=== PATIENT | female | born 1960 | race Caucasian/White ===

== ENCOUNTER → 2024-08-11 08:05 | Outpatient (REF) | payer MEDICARE, SELFPAY | LOC: WDC 08:05 | PROVIDERS: ATTENDING PHYSICIAN Nurse Practitioner Adult Health; FAMILY PHYSICIAN Physician Assistant Medical | DX: Z12.31 Encounter for screening mammogram for malignant neoplasm of breast (principal) | CPT/HCPCS: 77063; 77067 ==

== ENCOUNTER → 2024-10-01 10:31 | Outpatient (REF) | payer MEDICARE, SELFPAY | LOC: RAD 10:31 | PROVIDERS: ATTENDING PHYSICIAN Physician Assistant Medical | DX: Z78.0 Asymptomatic menopausal state (principal) | CPT/HCPCS: 77080 ==

== ENCOUNTER → 2025-02-07 08:08 | Outpatient (REF) | payer MEDICARE, SELFPAY | LOC: RCS 08:08 | PROVIDERS: ATTENDING PHYSICIAN Internal Medicine; FAMILY PHYSICIAN Physician Assistant Medical | DX: I31.39 Other pericardial effusion (noninflammatory) (principal) | CPT/HCPCS: 93306 ==

== ENCOUNTER → 2025-03-26 08:43 | Outpatient (REF) | payer SELFPAY | LOC: RAD 08:43 | PROVIDERS: ATTENDING PHYSICIAN Nurse Practitioner; FAMILY PHYSICIAN Physician Assistant Medical | DX: Z18.9 Retained foreign body fragments, unspecified material (principal); E78.00 Pure hypercholesterolemia, unspecified | CPT/HCPCS: 75571 ==